=== PATIENT | male | born 1995 | race Caucasian/White ===

== ENCOUNTER 2019-05-05 15:30 | Outpatient (RCR) | payer OTHER, SELFPAY ==
--- NOTE | 2019-05-05 16:05 | HP.PTREVAL_ITS ---
ESEQUIEL LEMON, It has been my pleasure to treat LUCIANO AGUIRRE over the last 3 visits for BPV. Please see the progress note below for an update on the physical therapy plan of care! Subjective: Doing exercises walking around neighborhood. Thinks they are helping. Exercises are getting easier. Has had some more severe episodes. Th ings have improved since last session. Doesn't have swaying feeling hardly at all. Has occasional unsteadiness if sitting for a while. One lengthy occurence per day of hour long swaying. Maybe less often. Feels good on weekends when not on computer all day. Has to stadn in position at work and turn head back and forth. To Dr. Valdez in a month or so. Objective/Function: Walking vOR asymptomatic. Walking nods and turns 3/10 for 1 minute. VOR x 2 slightly symptomatic 4/10 after 30 seconds for a minute. saccades adn pursuit asymptomatic. bend and recover and 180/360 turns without symptoms or balance deficits. Plan Plan: f/u one month to progress as long as improvements shown. Will see doctor in 4-6 weeks. Recheck adn note to doctor. Goals Goal 1:: back to normal feeling of manageable swaying Goal Time Frame: 4-6 Weeks Goal 2:: Normal activity without increased symptoms. Goal Time Frame: 4-6 Weeks Goal 3:: Pt feel 100% back to baseline symptoms Goal Time Frame: 4-6 Weeks Anticipated Interventions Patient/Client Instruction: Educate patient on: Condition, Plan of Care For the Purpose of:: To increase tolerance to activity/condition/position, To improve ability of physical actions for home/community/work/leisure Comment: adapatation and habituation ex For the Purpose of:: To increase tolerance to activity/condition/position, To improve ability of physical actions for home/community/work/leisure Please do not hesitate to contact me at [phone] by phone or if you have questions or concerns regarding this new plan of care! Sincerely, Bulmaro Romero, DPT, OCS, CSCS
--- NOTE | 2019-07-06 16:38 | HP.PT.NRP ---
HP - Discharge Summary (1) - Patient Information LUCIANO AGUIRRE was seen in my office for initial evaluation on 03/09/19. The following Plan of Care was established for this patient: Initial Frequency: 1x/Week Initial Duration: 4-6 Weeks - Anticipated Interventions Patient/Client Instruction: Educate patient on: Condition, Plan of Care For the Purpose of:: To increase tolerance to activity/condition/position, To improve ability of physical actions for home/community/work/leisure For the Purpose of:: To increase tolerance to activity/condition/position, To improve ability of physical actions for home/community/work/leisure This patient was last seen in our office 05/05/19. Pertinent comments regarding their Physical therapy will appear below: Pt seen for 3 visits of habituation exercises and was 55% better. He was to f/u one month later in early June but did not show up. At this point, it has been over two months adn I will discontinue due to nonattendance. At this point I will be discontinuing this patient from physical therapy. I would be happy to see this patient again in the future if found appropriate by the physician. Thank you! Bulmaro Romero, DPT, OCS, CSCS
== END 2019-05-05 19:00 | disposition home or self-care (01) ==
LOC: PT 15:30
DX: H81.10 Benign paroxysmal vertigo, unspecified ear (principal)
CPT/HCPCS: 97162; 97530